=== PATIENT | male | born 1955 | race Caucasian/White ===

== ENCOUNTER 2016-09-13 11:39 | Outpatient (CLI) | payer OTHER ==
[2014-09-02 09:35] VITALS: BP 121/76
--- NOTE | 2016-09-13 14:30 | Diagnostic Imaging Report ---
DAVINA DUMAS [facility] [address] [facility].[address] [id number] Report Submission Date: Sep 13, 2016 2:01:15 PM CDT Patient Study Name: KWAN HADDAD Date: Sep 13, 2016 11:48:17 AM CDT Modality Type: CR Gender: M Description: LOWER EXTREMITY : 57 Institution: [facility] Physician: DAVINA DUMAS Left foot - three views Clinical history: Pain and swelling for 2 weeks. Findings: Examination of the left foot in plantar, lateral and oblique views demonstrates degenerative changes with narrowing of the first metatarsophalangeal joint and osteophyte formation. There is mild narrowing of the interphalangeal joints. There is no evident fracture or dislocation. Small calcaneal spurs are seen on the lateral view. Impression: 1. Degenerative changes. 2. No fracture. Electronically signed on Sep 13, 2016 2:01:15 PM CDT by: Mark BEAR
== END 2016-09-13 11:40 ==
LOC: RAD 11:39
PROVIDERS: ATTEND Family Medicine
DX: M79.672 Pain in left foot (principal)
CPT/HCPCS: 36415; 73630; 84550

== ENCOUNTER 2016-12-23 14:14 | Outpatient (CLI) | payer OTHER ==
[2014-09-02 09:35] VITALS: BP 121/76
--- NOTE | 2016-12-23 15:12 | Diagnostic Imaging Report ---
DAVINA DUMAS [facility] [address] [facility] [address] [address] Report Submission Date: Dec 23, 2016 2:55:38 PM CDT Patient Study Name: KWAN HADDAD Date: Dec 23, 2016 2:25:10 PM CDT Modality Type: CR Gender: M Description: SPINE : 57 Institution: [facility] Physician: DAVINA DUMAS Examination: Plain film thoracic spine History: Back discomfort Findings: 3 views of the thoracic spine demonstrate normal height. No anterior compression. Scattered anterior osteophytes. No soft tissue abnormalities. Anterior fusion C5 through T1. C3/C4 and C4/C5 listhesis: Not formally evaluated on a thoracic spine examination. Impression: Degenerative changes. No compression deformity. If patient has experiencing neurologic symptoms, recommend obtaining MRI. Electronically signed on Dec 23, 2016 2:55:38 PM CDT by: Abhishek BEAR
== END 2016-12-23 14:15 ==
LOC: RAD 14:14
PROVIDERS: ATTEND Family Medicine
DX: M54.6 Pain in thoracic spine (principal)
CPT/HCPCS: 72072

== ENCOUNTER 2016-12-26 10:17 | Outpatient (CLI) | payer OTHER ==
[2014-09-02 09:35] VITALS: BP 121/76
--- NOTE | 2016-12-26 18:08 | Diagnostic Imaging Report ---
DAVINA DUMAS~ [facility] [address] [facility]. [address] [place] [address]. [phone] ~ ~ ~ ~ Report Submission Date: Dec 26, 2016 2:14:21 PM CDT Patient ~ Study Name: KWAN HADDAD ~ Date: Dec 26, 2016 10:38:01 AM CDT ~ Modality Type: MR Gender: M ~ Description: MRI T SPINE W/O CONTRAST : 57 ~ Institution: [facility] Physician: DAVINA DUMAS ~ ~ ~ ~ Magnetic resonance imaging of the thoracic spine without contrast History: Persistent upper back pain after fall in 2016. Left upper extremity pain. Findings: Routine sagittal and axial images the thoracic spine are obtained without contrast. C5 through T1 anterior fusion hardware artifact is observed. A fatty replaced T11 vertebral body hemangioma is observed. The conus medullaris terminates at L1. The thoracic spinal cord is normal. An old mild T3 inferior endplate compression fracture deformity is present. Posterior T4/T5 disc bulging produces mild cord impingement. Right posterior T7/8 and T9/10 disc protrusions are observed. There is no central canal stenosis or foraminal stenosis. Impression: 1. Old mild T3 inferior endplate compression fracture. 2. C5 through T1 anterior fusion hardware artifact. 3. T4/T5 disc bulging with mild cord impingement. 4. Small right posterior T7/T8 and T9/10 disc protrusions. ~ Electronically signed on Dec 26, 2016 2:14:21 PM CDT by: Yossi BEAR
== END 2016-12-26 10:27 | disposition home or self-care (01) ==
LOC: RAD 10:17
PROVIDERS: ATTEND Family Medicine
DX: M54.6 Pain in thoracic spine (principal)
CPT/HCPCS: 72146

== ENCOUNTER 2017-04-04 16:22 | Outpatient (CLI) | payer OTHER ==
[2014-09-02 09:35] VITALS: BP 121/76
--- NOTE | 2017-04-06 15:35 | Diagnostic Imaging Report ---
KELVIN LANGE [facility] [address] [facility] [address] [address] Report Submission Date: Apr 04, 2017 4:44:43 PM MANUFACTURING PROCESS ENGINEER Patient Study Name: KWAN HADDAD Date: Apr 04, 2017 4:30:04 PM MANUFACTURING PROCESS ENGINEER Modality Type: CR Gender: M Description: UPPER EXTREMITY : 57 Institution: 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 Dystrophic calcifications. Possible lucency of base of the 1st metatarsal - only view one image. Remaining articulations demonstrate degenerative changes. No fracture. No dislocation. No soft tissue abnormality. Impression: Extensive articular degenerative changes. Faint lucency involving the base of the 1st metatarsal. Degenerative versus non displaced fracture line. Correlate with point of discomfort. Electronically signed on Apr 04, 2017 4:44:43 PM MANUFACTURING PROCESS ENGINEER by: Abhishek Baires Should read: Body: Possible lucency of base of the 1st metacarpal - only view one image. Impression: Faint lucency involving the base of the 1st metacarpal. Addendum electronically signed by Abhishek Baires on April 05, 2017 3:16:05 PM [facility]
== END 2017-04-04 16:23 ==
LOC: RAD 16:22
PROVIDERS: ATTEND Physician Assistant
DX: S69.92XA Unspecified injury of left wrist, hand and finger(s), initial encounter (principal)
CPT/HCPCS: 73130

== ENCOUNTER 2017-04-19 11:16 | Outpatient (CLI) | payer SELFPAY ==
[2014-09-02 09:35] VITALS: BP 121/76
[2017-04-19 11:43] LABS: BASOPHILS % 0.6 (0.0-1.5); MEAN CORPUSCULAR HEMOGLOBIN 33.2 pg (28.0-34.0); MEAN CORPUSCULAR VOLUME 98.9 fl (80.0-100.0); MONOCYTES % 4.1 % (0.0-11.0); NEUTROPHILS # 1.9 # k/uL (1.4-7.7)
[2017-04-19 12:06] LABS: eGFR (African) > 60; eGFR (Non-African) > 60
== END 2017-04-19 11:17 ==
LOC: LAB 11:16
PROVIDERS: ATTEND Physician Assistant
DX: R60.9 Edema, unspecified (principal)
CPT/HCPCS: 36415; 80053; 85025; 85651; 86038; 86431

== ENCOUNTER 2018-04-28 12:41 | Outpatient (CLI) | payer BC ==
[2014-09-02 09:35] VITALS: BP 121/76
[2018-04-28 13:24] LABS: eGFR (Non-African) > 60
== END 2018-04-28 12:42 ==
LOC: LAB 12:41
PROVIDERS: ATTEND Family Medicine
DX: Z00.00 Encounter for general adult medical examination without abnormal findings (principal); Z12.5 Encounter for screening for malignant neoplasm of prostate; Z13.6 Encounter for screening for cardiovascular disorders
CPT/HCPCS: 36415; 80053; 80061; G0103